=== PATIENT | female | born 1980 | race Caucasian/White ===

== ENCOUNTER 2016-06-25 14:22 | Emergency (ER) | payer MEDICAID, OTHER ==
[~2016-06-25] VITALS: Ht 157.5 cm; Wt 67.2 kg
[~2016-06-25 14:22] MED LIST: ACET1TAB40 PO; HYDR-3498 PO; IBUP-1542 PO; NAPR-260 PO; NITR-58 PO; ONDA4TAB35 PO; PHEN-538 PO
[2016-06-25 14:31] VITALS: Ht 157.5 cm; Wt 67.2 kg
[2016-06-25] MEDS ORDERED: OSLT75C PO (15:51)
[2016-06-25] MEDS ORDERED: NAPR-260 PO (15:51)
[2016-06-25] MEDS ORDERED: D-ME473S18 PO (15:52)
[2016-06-25] MEDS ORDERED: ALBU8.5H3 INH (16:09)
--- NOTE | 2016-06-25 16:09 | ERD ---
ER Documentation Chief Complaint Date/Time DATE: 06/25/16 TIME: 16:06 Chief Complaint COUGH SINCE THURSDAY HPI This is a 36-year-old female presents here with a cough since Thursday. Patient' s cough is productive and constant. She has a past medical history of asthma. She also has body pain and sore throat with fevers and chills. Denies any chest pain or shortness of breath. ROS 12 point review of systems was done, all negative except per HPI. Medications Home Meds Active Scripts Dextromethorphan Hb-Promethazine Hcl (Promethazine DM Syrup) 473 Ml Syrup, 10 ML PO Q6H Y for COUGH, #4 OZ Prov:MICHAELFABIÁNNGA C 06/25/16 Naproxen* (Naprosyn*) 500 Mg Tablet, 500 MG PO BID Y for PAIN AND/OR INFLAMMATION, #30 TAB Prov:MICHAELNGA C 06/25/16 Oseltamivir Phosphate* (Tamiflu*) 75 Mg Capsule, 75 MG PO BID for 5 Days, CAP Prov:MICHAELNGA C 06/25/16 Hydrocodone Bit-Acetaminophen* ([place]*) 5-325 Mg Tab, 1 TAB PO Q6 Y for PAIN, # 7 TAB Prov:ELISE,JOSE DO 07/29/15 Naproxen* (Naprosyn*) 500 Mg Tablet, 500 MG PO BID Y for PAIN AND/OR INFLAMMATION, #10 TAB Prov:ELISE,[facility] [facility] [employer] 07/29/15 Acetaminophen-Codeine* (Acetaminophen-Cod #3*) 300-30 Mg Tab, 1 TAB PO Q4H Y for PAIN LEVEL 6-10, #15 TAB Prov:CHO,TOBY 10/13/14 Ibuprofen* (Motrin*) 600 Mg Tab, 600 MG PO Q6 Y for PAIN LEVEL 1-5, #15 TAB Prov:CHO,TOBY 10/13/14 Ondansetron Hcl* (Zofran* ODT) 4 mg -ODT Tab.disper, 4 MG PO Q6 Y for NAUSEA AND /OR VOMITING, #10 TAB Prov:CHO,TOBY 10/13/14 Phenazopyridine Hcl* (Pyridium*) 200 Mg Tab, 200 MG PO TID Y for DYSURIA, #6 TAB Prov:CHO,TOBY 10/13/14 Nitrofurantoin Monohyd Macrocr* (Macrobid*) 100 Mg Capsr, 100 MG PO BID for 14 Days, CAP Prov:TOBY RANDALL 10/13/14 Allergies Allergies: Coded Allergies: No Known Allergy (Unverified , 07/29/15) PMhx/Soc History of Surgery: No Anesthesia Reaction: No Hx Neurological Disorder: No Hx Respiratory Disorders: Yes (ASTHMA) Hx Cardiac Disorders: No Hx Psychiatric Problems: No Hx Miscellaneous Medical Probl: Yes Hx Alcohol Use: Yes (social) Hx Substance Use: No Hx Tobacco Use: No Physical Exam Vitals Vital Signs Date Time Temp Pulse Resp B/P Pulse Ox O2 Delivery O2 Flow Rate FiO2 06/25/16 14:31 99.3 96 20 139/95 98 Physical Exam GENERAL: The patient is well-developed, well-nourished, in no acute distress. NECK: Cervical spine is non tender with no step off. Supple, no nuchal rigidity HEENT: Atraumatic. Pupils equal, round and reactive to light. Extraocular muscles are grossly intact. Conjunctivae pink, no discharge. Bilateral tympanic membranes are clear with no evidence of erythema, effusion or dulling of the light reflex. Tonsilar erythema with no exudates or uvular deviation. Clear rhinorrhea. RESPIRATORY: Clear to auscultation bilaterally. There are no rales, wheezes or rhonchi. HEART: Regular rate and rhythm. No murmurs, clicks, rubs or gallops. EXTREMITIES: No clubbing or cyanosis. Full range of motion. Grossly neurovascularly intact. NEUROLOGIC: Alert and oriented. Cranial nerves II through XII are intact. SKIN: There is no rash. The skin is warm and dry. Procedures/MDM Differential diagnosis includes but is not limited to; Viral URI, allergic rhinitis, bronchitis, pertussis,pneumonia. This is likely viral in etiology. Patient does have influenza-like symptoms. She will be treated with Tamiflu. Clinical suspicion for pneumonia is low as patient appears well, is not hypoxic or in any respiratory distress. Additionally, patients physical examination is benign. Plan was discussed with patient they understand and agree. Patient needs to follow up with PCP in 1-2 days or return to ER sooner if symptoms worsen. Departure Diagnosis: Primary Impression: Upper respiratory infection Condition: Stable Patient Instructions: Preventing Common Respiratory Infections Additional Instructions: Llame al doctor MAANA y susanne halima MICH PARA DENTRO DE 1-2 KELLOGG.Dgale a la secretaria que nosotros le instruimos hacer esta mich.Avise o llame si weems condicin se empeora antes de la mich. Regresa aqui si peor o no mejor. NGA RODRIGUEZ Jun 25, 2016 16:09
== END 2016-06-25 16:30 | disposition home or self-care (01) ==
LOC: FTE 14:22
DX: J06.9 Acute upper respiratory infection, unspecified (principal); J45.909 Unspecified asthma, uncomplicated
CPT/HCPCS: 99284

== ENCOUNTER 2017-01-19 12:19 | Emergency (ER) | payer MEDICAID, OTHER ==
[~2017-01-19] VITALS: Ht 152.4 cm; Wt 89.0 kg
[~2017-01-19 12:19] MED LIST changes: +ALBU8.5H3 INH; +D-ME473S18 PO; +OSLT75C PO
[2017-01-19 12:21] VITALS: Ht 152.4 cm; Wt 89.0 kg
[2017-01-19] MEDS ORDERED: KETOROLAC 30 MG INJ IV STA (14:29)
[2017-01-19] MEDS ORDERED: METOCLOPRAMIDE 10 MG INJ IV STA (14:29)
[2017-01-19] MEDS ORDERED: DIPHENHYDRAMINE 50 MG INJ IV STA (14:29)
[2017-01-19] MEDS ORDERED: SOD CHLORIDE 0.9% 1,000 ML IV STA (14:29)
--- NOTE | 2017-01-19 14:29 | ERD ---
ER Documentation Chief Complaint Date/Time DATE: 01/19/17 TIME: 14:26 Chief Complaint martinez x 3 days, dysuria today HPI This 36-year-old female presents to emergency department with complaint of MARTINEZ and left neck pain x 4 days, MARTINEZ frontal, described as pounding. Neck pain stiff and radiating down left arm. denies injury, reports nausea, denies vomiting, photosensitivity, change in vision or behavior. 2nd c/o bladder pain and legs cramps. ROS All systems reviewed and are negative except as per history of present illness. Medications Home Meds Active Scripts Diazepam* (Valium*) 5 Mg Tablet, 5 MG PO Q8 for MUSCLE SPASMS, #10 TAB Prov:ANGELO,KALE 01/19/17 Naproxen* (Naprosyn*) 500 Mg Tablet, 500 MG PO BID Y for PAIN AND/OR INFLAMMATION, #20 TAB Prov:ANGELO,KALE 01/19/17 Albuterol Sulfate* (Proair HFA*) 8.5 Gm Hfa.aer.ad, 2 PUFF INH Q4, #1 INHALER Prov:NGA RODRIGUEZ 06/25/16 Dextromethorphan Hb-Promethazine Hcl (Promethazine DM Syrup) 473 Ml Syrup, 10 ML PO Q6H Y for COUGH, #4 OZ Prov:NGA RODRIGUEZ 06/25/16 Naproxen* (Naprosyn*) 500 Mg Tablet, 500 MG PO BID Y for PAIN AND/OR INFLAMMATION, #30 TAB Prov:NGA RODRIGUEZ 06/25/16 Oseltamivir Phosphate* (Tamiflu*) 75 Mg Capsule, 75 MG PO BID for 5 Days, CAP Prov:NGA RODRIGUEZ 06/25/16 Hydrocodone Bit-Acetaminophen* ([place]*) 5-325 Mg Tab, 1 TAB PO Q6 Y for PAIN, # 7 TAB Prov:JOSE OLIVARES DO 07/29/15 Naproxen* (Naprosyn*) 500 Mg Tablet, 500 MG PO BID Y for PAIN AND/OR INFLAMMATION, #10 TAB Prov:JAZZ OLIVARESRAM DO 07/29/15 Acetaminophen-Codeine* (Acetaminophen-Cod #3*) 300-30 Mg Tab, 1 TAB PO Q4H Y for PAIN LEVEL 6-10, #15 TAB Prov:CHO,TOBY 6/12/15 Ibuprofen* (Motrin*) 600 Mg Tab, 600 MG PO Q6 Y for PAIN LEVEL 1-5, #15 TAB Prov:CHO,TOBY 10/13/14 Ondansetron Hcl* (Zofran* ODT) 4 mg -ODT Tab.disper, 4 MG PO Q6 Y for NAUSEA AND /OR VOMITING, #10 TAB Prov:CHO,TOBY 10/13/14 Phenazopyridine Hcl* (Pyridium*) 200 Mg Tab, 200 MG PO TID Y for DYSURIA, #6 TAB Prov:CHO,TOBY 10/13/14 Nitrofurantoin Monohyd Macrocr* (Macrobid*) 100 Mg Capsr, 100 MG PO BID for 14 Days, CAP Prov:CHO,TOBY 10/13/14 Allergies Allergies: Coded Allergies: No Known Allergy (Unverified , 07/29/15) PMhx/Soc History of Surgery: No Anesthesia Reaction: No Hx Neurological Disorder: No Hx Respiratory Disorders: Yes (ASTHMA) Hx Cardiac Disorders: No Hx Psychiatric Problems: No Hx Miscellaneous Medical Probl: Yes Hx Alcohol Use: Yes (social) Hx Substance Use: No Hx Tobacco Use: No Physical Exam Vitals Vital Signs Date Time Temp Pulse Resp B/P Pulse Ox O2 Delivery O2 Flow Rate FiO2 01/19/17 12:21 98.1 84 18 128/82 99 Vitals stable, triage notes reviewed Physical Exam Const: Well-nourished well-appearing well-hydrated 36-year-old female no acute distress Head: Atraumatic no hematoma laceration or contusion Eyes: Normal Conjunctiva, PERRLA, EOMI, no photosensitivity ENT: Lateral tympanic membranes are dull, nasal mucosa moist, pharynx pink, uvula midline, rises and falls with pronation no shift. Neck: Apical spine nontender over bony prominence, sided paraspinal tenderness, tenderness and rhomboid tenderness. Full range of motion with pain rotation to the right. Right lateral bending. Resp: Cardio: Abd: Abdomen soft nontender nondistended, negative CVA tenderness, negative Be's sign, negative McBurney's point tenderness Skin: Back: No midline or flank tenderness Ext: Neuro: Alert and oriented Face: EOMI, face and pharynx with normal sensation and function Motor: Normal strength throughout Sensation: Normal sensation throughout Speech: Normal Cerebel: Normal coordination Normal gait Normal finger to nose DTR: 2+ and symmetric upper/lower extremities Psych: Normal Mood and Affect Results 24 hrs Laboratory Tests Test 01/19/17 15:07 Bedside Urine pH (LAB) 7.5 Bedside Urine Protein (LAB) Negative Bedside Urine Glucose (UA) Negative Bedside Urine Ketones (LAB) Negative Bedside Urine Blood Negative Bedside Urine Nitrite (LAB) Negative Bedside Urine Leukocyte Esterase (L Negative Current Medications Medications (Trade) Dose Ordered Sig/Shar Route PRN Reason Start Time Stop Time Status Last Admin Dose Admin Sodium Chloride (NS) 1,000 ml @ 1,000 mls/hr Q1H STAT IV 01/19/17 14:29 01/19/17 15:28 DC 01/19/17 15:13 Metoclopramide HCl (Reglan) 10 mg ONCE STAT IV 01/19/17 14:29 01/19/17 14:32 DC 01/19/17 15:14 Ketorolac Tromethamine (Toradol) 30 mg ONCE STAT IV 01/19/17 14:29 01/19/17 14:32 DC 01/19/17 15:14 Diphenhydramine HCl (Benadryl) 25 mg ONCE STAT IV 01/19/17 14:29 01/19/17 14:32 DC 01/19/17 15:13 Analysis negative evidence of infection no leukocytosis, microscopic hematuria or nitrates. Procedures/MDM PROCEDURE: XR Cervical Spine. CLINICAL INDICATION: Neck pain TECHNIQUE: Three views of the cervical spine were performed. The images were reviewed on a PACS workstation. COMPARISON: None. FINDINGS: There is straightening of the normal cervical lordosis. Alignment is otherwise intact. There is no evidence of acute fracture or dislocation. Vertebral body heights are well maintained. Intervertebral disc heights are well maintained. The odontoid is well centered within the lateral masses of C1. The prevertebral soft tissues are within normal limits. IMPRESSION: 1. Nonspecific straightening of the normal cervical lordosis. 2. Otherwise unremarkable cervical spine series. .Mulugeta Palomares MD, MD Date Time 36-year-old female presents to emergency department today with a four-day history of headache. Patient has history of headaches usually controlled with [id number] medication. Patient reports that this headache is not improving with Excedrin. Patient reports that the headache is pounding located on the frontal lobe. Patient not remember the exact time the headache starts nor does she report this as the worst headache she has ever felt. Patient has been able to eat and drink without deficit. Patient reports left neck pain radiating down her arm, she denies any injury. Denies numbness or tingling to her fingers or loss of function or change in range of motion. Patient has secondary complaint of bladder pain and leg fatigue, patient denies dysuria, hematuria, or back pain. Emergency room course includes IV hydration with a liter of normal saline, medication to break headache cycle with Toradol 15 mg IV, Reglan 10 mg IV, Benadryl 25 mg IV. Urinalysis obtained to rule out urinary tract infection. And a cervical spine x-ray. Patient reports improvement after receiving medication interventions, x-ray as read by radiologist reports: Nonspecific straightening of the normal cervical lordosis. Otherwise unremarkable cervical spine series. Urinalysis negative for evidence of infection. Plan to discharge patient home with Naprosyn 500 mg twice daily 10 days for headache and cervical strain, Valium 5 mg 1 tab p.o. 3 times daily as needed myalgia. Increase fluids, increase rest, follow-up with primary care physician if symptoms fail to improve in the next 3 days for possible referral to physical therapy. Patient is stable with no new complaints during ER course, clinically there is no current evidence to suggest meningitis, ethmoid bleed, subdural hematoma, pyelonephritis, acute abdomen, urinary tract infection. Or any other emergent condition appearing to require further evaluation or hospitalization. I feel the patient is stable for discharge at this time. I have discussed results, examination findings, the treatment plan with the patient and family present prior to discharge. Indications for emergent reevaluation, side effects of medication were also discussed. All questions were answered. Patient verbalizes understanding and agrees with plan of care. Departure Diagnosis: Primary Impression: Headache Headache type: unspecified Headache chronicity pattern: unspecified pattern Intractability: not intractable Qualified Code: R51 - Nonintractable headache, unspecified chronicity pattern, unspecified headache type Additional Impression: Cervical muscle strain Encounter type: initial encounter Qualified Code: S16.1XXA - Strain of neck muscle, initial encounter Condition: Good Patient Instructions: Self-Care for Headaches, Whiplash [facility] Additional Instructions: Thank you for for coming to the [facility] for your care today. Please ask your nurse or provider if you have questions about your care today and do not leave until all your questions have been answered. Please use any medications given as directed and follow-up with your doctor (or the doctor you were referred to) in the next 2-3 days. If you do not have a primary care doctor you may follow up at the [facility] (listed below). You may also use motrin and tylenol as needed for fever and/or pain unless instructed otherwise by your provider or nurse. Indications for more urgent follow-up have been discussed, but you may return to the Emergency Department at ANY time for any worrisome or worsening symptoms. If you have abdominal pain, please know that no test or exam you received is perfect and you should follow up within 8 hours for continued pain. If you had any imaging studies today, such as an X-Ray or CT Scan, these studies will be reviewed later by a radiologist. You will be called if there are important findings that were not identified today, so make sure the contact information you provided at registration is correct. If you received any narcotic pain control medicine today, such as Vicodin, Morphine or Dilaudid, your coordination and judgment may be affected for a number of hours. Please do not drive or operate heavy machinery, and you may want someone to assist you at home. If you were given a prescription for narcotic medication, be aware that it is very addictive- use sparingly and only if necessary. KALE STEPHENS Jan 19, 2017 14:29
[2017-01-19 15:00] LABS: URINE BLOOD (Dip) POC Negative (NEGATIVE)
--- NOTE | 2017-01-19 15:09 | RADRPT ---
PROCEDURE: XR Cervical Spine. CLINICAL INDICATION: Neck pain TECHNIQUE: Three views of the cervical spine were performed. The images were reviewed on a PACS Elli. COMPARISON: None. FINDINGS: There is straightening of the normal cervical lordosis. Alignment is otherwise intact. There is no evidence of acute fracture or dislocation. Vertebral body heights are well maintained. Interverte bral disc heights are well maintained. The odontoid is well centered within the lateral masses of C 1. The prevertebral soft tissues are within normal limits. IMPRESSION: 1. Nonspecific straightening of the normal cervical lordosis. 2. Otherwise unremarkable cervical spine series. RPTAT: KK .Mulugeta Palomares MD, MD Date Time Electronically viewed and signed by .Mulugeta Palomares MD, on 01/19/2017 15:08 .B/
[2017-01-19] MEDS ORDERED: NAPR-260 PO (15:45)
[2017-01-19] MEDS ORDERED: DIAZ-90 PO (15:45)
== END 2017-01-19 16:36 | disposition home or self-care (01) ==
LOC: FTE 12:19
DX: R51 Headache (principal); S16.1XXA Strain of muscle, fascia and tendon at neck level, initial encounter; J45.909 Unspecified asthma, uncomplicated; X58.XXXA Exposure to other specified factors, initial encounter; Y92.9 Unspecified place or not applicable
CPT/HCPCS: 72040; 81003; 96374; 96375; J1200; J1885; J2765; J7030; Z7502

== ENCOUNTER 2017-07-16 10:41 | Emergency (ER) | END 2017-07-16 13:06 | disposition home or self-care (01) ==

== ENCOUNTER 2017-11-29 09:42 | Emergency (ER) | END 2017-11-29 11:20 | disposition home or self-care (01) ==

== ENCOUNTER 2018-04-24 23:44 | Emergency (ER) | END 2018-04-25 05:22 | disposition home or self-care (01) ==